=== PATIENT | female | born 1960 | race Caucasian/White ===

== ENCOUNTER 2018-05-09 02:57 | Emergency (ER) | payer OTHER ==
[~2018-05-09] VITALS: Wt 68.1 kg
[2018-05-09] MEDS ORDERED: SOD CHLORIDE 0.9% 500 ML IV STA (03:43)
[2018-05-09] MEDS ORDERED: ONDANSETRON 4 MG INJ IV STA (03:43)
[2018-05-09] MEDS ORDERED: KETOROLAC 30 MG INJ IV STA (05:23)
--- NOTE | 2018-05-09 05:26 | ERD ---
ER Documentation Chief Complaint Chief Complaint LEPE, DIZZINESS, BLURRY VISION X'S 1 DAY. HX HTN HPI This is a very pleasant 57-year-old female comes in with a headache dizziness and blurry vision for 1 day. She is a history of hypertension but she feels like she is having a migraine headache and that she also has a history of. Bl ood pressures been elevated over the past 2 days because of pain. He complains of photophobia. Denies any neck stiffness. Denies any focal neurological complaints. Denies any other current issues. ROS All systems reviewed and are negative except as per history of present illness. PMhx/Soc History of Surgery: Yes (APPENDECTOMY) Anesthesia Reaction: No Hx Neurological Disorder: No Hx Cardiac Disorders: Yes (HTN) Hx Psychiatric Problems: No Hx Miscellaneous Medical Probl: No Hx Alcohol Use: No Hx Substance Use: No Hx Tobacco Use: No Smoking Status: Never smoker Physical Exam Vitals Vital Signs Date Temp Pulse Resp B/P (MAP) Pulse Ox O2 O2 Flow FiO2 Time Delivery Rate 05/09/18 97.3 90 18 182/93 03:10 (122) Physical Exam Const: No acute distress Head: Atraumatic Eyes: Normal Conjunctiva ENT: Normal External Ears, Nose and Mouth. Neck: Full range of motion. No meningismus. Resp: Clear to auscultation bilaterally Cardio: Regular rate and rhythm, no murmurs Abd: Soft, non tender, non distended. Normal bowel sounds Skin: No petechiae or rashes Back: No midline or flank tenderness Ext: No cyanosis, or edema Neur: Awake and alert Psych: Normal Mood and Affect Result Diagram: 05/09/18 0352 05/09/18 0352 Results 24 hrs Laboratory Tests Test 05/09/18 03:52 White Blood Count 6.6 10^3/ul Red Blood Count 4.65 10^6/ul Hemoglobin 14.1 g/dl Hematocrit 43.4 % Mean Corpuscular Volume 93.3 fl Mean Corpuscular Hemoglobin 30.3 pg Mean Corpuscular Hemoglobin Concent 32.5 g/dl Red Cell Distribution Width 11.9 % Platelet Count 311 10^3/UL Mean Platelet Volume 9.5 fl Immature Granulocytes % 0.300 % Neutrophils % 54.8 % Lymphocytes % 35.3 % Monocytes % 7.7 % Eosinophils % 1.4 % Basophils % 0.5 % Nucleated Red Blood Cells % 0.0 /100WBC Immature Granulocytes # 0.020 10^3/ul Neutrophils # 3.6 10^3/ul Lymphocytes # 2.3 10^3/ul Monocytes # 0.5 10^3/ul Eosinophils # 0.1 10^3/ul Basophils # 0.0 10^3/ul Nucleated Red Blood Cells # 0.0 10^3/ul Prothrombin Time 12.2 Sec Prothrombin Time Ratio 1.0 INR International Normalized Ratio 0.89 Activated Partial Thromboplast Time 25.4 Sec Sodium Level 143 mmol/L Potassium Level 4.0 mmol/L Chloride Level 100 mmol/L Carbon Dioxide Level 29 mmol/L Anion Gap 14 Blood Urea Nitrogen 19 mg/dl Creatinine 0.76 mg/dl Est Glomerular Filtrat Rate mL/min > 60 mL/min Glucose Level 130 mg/dl Calcium Level 10.0 mg/dl Troponin I < 0.012 ng/ml Current Medications Medications Dose Sig/Mo Start Time Status Last (Trade) Ordered Route PRN Stop Time Admin Dose Reason Admin Sodium 500 ml @ Q1H STAT 05/09/18 DC 05/09/18 Chloride 500 mls/hr IV 03:43 04:02 05/09/18 04:42 Ondansetron 4 mg ONCE STAT 05/09/18 DC 05/09/18 HCl (Zofran IV 03:43 04:02 Inj) 05/09/18 03:45 Procedures/MDM EKG: Rate/Rhythm: [Normal Sinus Rhythm] QRS, ST, T-waves: [No changes consistent w/ acute ischemia] Impression: [No evidence of ischemia or arrhythmia] Chest X-ray 1V Interpreted by me: Soft Tissue: No acute abnormalities Bones: No acute abnormalities Mediastinum/Cardiac Silhouette/Lungs: [No acute abnormalities] Medical decision makin-year-old female who has evidence of migraine. CT of the head is negative. She continues to be nonfocal neurologically she has resolved with medication and fluids. At this point her blood pressure is normal as well. Patient will be discharged home. She is to follow with her primary care physician. Return for worsening symptoms. Patient's neurologic symptoms have stabilized while they have been evaluated in the department and are appropriate for outpatient work up. No e/o meningitis, intracranial bleed, seizure, stroke. Departure Diagnosis: Primary Impression: Headache Headache type: unspecified Headache chronicity pattern: unspecified pattern Intractability: not intractable Qualified Codes: R51 - Headache Condition: Serious RASHMI URBINA May 09, 2018 05:26
[2018-05-09] MEDS ORDERED: ONDA4TAB14 PO (05:27)
[2018-05-09] MEDS ORDERED: TRAM50TA2 PO (05:27)
[2018-05-09] MEDS ORDERED: METOCLOPRAMIDE 10 MG INJ IV ONE (05:30)
[2018-05-09 05:44] VITALS: BP 132/83; PULSE 85; RESP 17
== END 2018-05-09 05:50 | disposition home or self-care (01) ==
LOC: E/R 02:57
DX: R51 Headache (principal); R40.2142 Coma scale, eyes open, spontaneous, at arrival to emergency department; R40.2362 Coma scale, best motor response, obeys commands, at arrival to emergency department; R40.2252 Coma scale, best verbal response, oriented, at arrival to emergency department; I10 Essential (primary) hypertension; R07.9 Chest pain, unspecified
CPT/HCPCS: 36415; 70450; 71045; 80048; 84484; 85025; 85610; 85730; 93005; 96374; 96375; J1885; J2405; J2765; J7040; Z7502